=== PATIENT | female | born 1940 | race Caucasian/White ===

== ENCOUNTER 2022-01-18 13:20 | Inpatient (IN) ==
--- NOTE | 2022-01-18 14:29 | Emergency Department Note ---
Seizure HPI General Chief Complaint: Seizure Stated Complaint: Seizure Time Seen by Provider: 01/18/22 13:36 Source: EMS Mode of arrival: EMS Limitations: altered mental status History of Present Illness HPI Narrative: 81-year-old female with history of seizures and advanced Alzheimer's was seen in our ER on 01/14 for altered mental status and weakness. She had a head CT that was negative for acute findings. Patient reportedly fell and broke her right wrist about 4 days prior and was seen at [facility] and treated conservatively with immobilization in a cast. She was also found to have a possible developing pneumonia on chest x-ray and was started on doxycycline. She was discharged to her adult family home facility. Today her adult family home staff noted that she started convulsing at the breakfast table and called EMS. She is on lamotrigine for seizure suppression in liquid form, and the caregiver states that she has been "drooling" it out of her mouth and cannot be certain that she has been receiving her full dosage. Family is at the bedside and both family and the adult family home caregivers note that she has been minimally interactive with significant decline in functional capacity over the last 4 days. Prior to her fall she had been ambulating with assistance. Related Data Home Medications Medication Instructions Recorded Confirmed acetaminophen 325 mg capsule 650 mg PO Q4H PRN 01/10/22 01/10/22 amoxicillin 875 mg-potassium 1 tab PO BID 01/10/22 01/10/22 clavulanate 125 mg tablet atorvastatin 20 mg tablet 20 mg PO QDAY 01/10/22 01/10/22 bisacodyl 10 mg rectal suppository 10 mg NM QDAY PRN 01/10/22 01/10/22 calcium carbonate 500 mg calcium 500 mg PO BID 01/10/22 01/10/22 (1,250 mg) tablet docusate sodium 100 mg capsule 100 mg PO BID 01/10/22 01/10/22 guaifenesin 200 mg tablet 600 mg PO Q6H PRN tab 01/10/22 01/10/22 ibuprofen 200 mg tablet 400 mg PO Q8H 01/10/22 01/10/22 levetiracetam 100 mg/mL oral 500 mg PO BID ml 01/10/22 01/10/22 solution levothyroxine 25 mcg capsule 25 mcg PO QDAY 01/10/22 01/10/22 loperamide 2 mg capsule 2 mg PO Q6H PRN 01/10/22 01/10/22 multivitamin 1 tab PO QAM 01/10/22 01/10/22 polyethylene glycol 3350 4 gram 4 g PO QDAY 01/10/22 01/10/22 oral powder packet promethazine 25 mg tablet 25 mg PO Q6H PRN 01/10/22 01/10/22 sennosides 8.6 mg capsule (senna) 8.6 mg PO BID 01/10/22 01/10/22 Previous Rx's Medication Instructions Recorded doxycycline monohydrate 100 mg 100 mg PO BID 7 Days #14 cap 01/14/22 capsule doxycycline monohydrate 100 mg 100 mg PO BID 7 Days #14 tab 01/14/22 tablet Allergies Allergy/AdvReac Type Severity Reaction Status Date / Time No Known Drug Allergies Allergy Verified 01/18/22 13:21 Review of Systems ROS ROS Narrative: Narrative: All systems ED: reviewed and negative except as stated. [facility] Narrative Patient History Narrative: Narrative: Medical/Surgical/Family History All Active Problems (Updated 01/18/22 @ 21:17 by Cathryn Iraheta PA-C) Pneumonia (Acute) Need for comfort care (Acute) Social History Smoking Status: Never smoker Exam Narrative Narrative: General: NAD, nontoxic appearing. Arousable, but not following commands and minimally interactive. HEENT: PERRL, EOMI, normocephalic. Dry mucous membranes. Normal facies and normal dentition. Chest: Symmetric, no pain to palpation Respiratory: Lungs clear to auscultation bilaterally. No respiratory distress. Unlabored breathing. Heart: Regular rate and rhythm, no murmurs/clicks/rubs. Abdomen: Non-tender, Non distended, normal bowel tones. No organomegaly. Extremities: Warm and well perfused. No edema. DP 2+ bilaterally. No venous stasis. Neuro: No focal deficits. Cranial nerves II-XII grossly normal. Skin: Warm dry, no rashes or lesions, no cyanosis. Psych: Normal mood and affect Heme/Lymph: No abnormal bruising General Limitations: altered mental status Course Course Course Narrative: 81-year-old female presents for seizure activity and altered mental status Reevaluation(s) Reevaluation #1: Patient has had no seizure activity during her evaluation here. I discussed with the family at the bedside goals of care and the family has elected to make the patient comfort care. They are agreeable to hospice referral and consult. Given the above I have refrained from ordering any additional imaging or laboratory studies. I have reached out to the hospitalist for admission for comfort care. Vital Signs Vital signs: Vital Signs Temperature 97.2 F 01/18/22 13:21 Pulse Rate 123 H 01/18/22 13:21 Respiratory Rate 20 01/18/22 13:21 Blood Pressure 150/75 01/18/22 13:21 Pulse Oximetry (%) 95 01/18/22 13:21 Temperature 97.8 F 01/18/22 20:00 Pulse Rate 73 01/18/22 20:00 Respiratory Rate 16 01/18/22 20:00 Blood Pressure 152/79 01/18/22 20:00 Pulse Oximetry (%) 94 01/18/22 20:00 MDM MDM Narrative Medical decision making narrative: Altered mental status Seizures Comfort care I discussed comfort care at length with the family at the bedside and they all agree that admission for comfort and referral to hospice is in Gaye's best interest. The hospitalist accepted the patient for admission. ED POC Tests ED POC Tests: LEONARDO - SARS Antigen Negative Discharge Plan Patient/Caregiver Discharge Instructions Pt seen by INSULATION FOREMAN/PA only: Yes Clinical Impression: Need for comfort care Patient Disposition: Xfer As Inpt ([facility]) Discharge Date/Time: 01/18/22 18:15
[2022-01-18] MEDS ORDERED: PROCHLORPERAZINE 10 MG/2 ML VIAL IV PRN (17:50)
[2022-01-18] MEDS ORDERED: QUEtiapine 25 MG TABLET PO PRN (17:50)
[2022-01-18] MEDS ORDERED: ALBUTEROL SULFATE 2.5 MG/3 ML NEBULIZER NEB PRN (17:50)
[2022-01-18] MEDS ORDERED: DIVALPROEX 125 MG CAP.SPRINK PO PRN (17:50)
[2022-01-18] MEDS ORDERED: oxyCODONE/APAP 5/325MG TABLET PO PRN (17:50)
[2022-01-18] MEDS ORDERED: diphenhydrAMINE 50 MG/ML VIAL IV PRN (17:50)
[2022-01-18] MEDS ORDERED: LORazepam 2 MG/ML VIAL IV PRN (17:50)
[2022-01-18] MEDS ORDERED: ACETAMINOPHEN 325 MG TABLET PO PRN (17:50)
[2022-01-18] MEDS ORDERED: ONDANSETRON 4 MG/2 ML VIAL IV PRN (17:50)
[2022-01-18] MEDS: HYDROmorphone 1 MG/ML SYRINGE IV PRN (20:51)
[2022-01-18] MEDS: SENNOSIDES 1 TABLET PO SCH (20:52)
[2022-01-18] MEDS: DOCUSATE SODIUM 100 MG CAPSULE PO SCH (20:52)
[2022-01-18] MEDS: LORazepam 2 MG/ML ORAL.SOL PO PRN (20:52)
[2022-01-18] MEDS: 0.9 % SODIUM CHLORIDE 10 ML SYRINGE IV SCH (21:20)
[2022-01-19] MEDS: 0.9 % SODIUM CHLORIDE 10 ML SYRINGE IV SCH ×2 (09:17→13:29)
[2022-01-19] MEDS: DOCUSATE SODIUM 100 MG CAPSULE PO SCH ×2 (09:18→19:57)
--- NOTE | 2022-01-19 10:17 | Internal Med History&Physical ---
HPI History of Present Illness Patient information: Note initiated : 01/18/22 at 10:17 pm Service Date, if different from initiated Date: 01/19/22 Patient: Gaye Paredes a 81 y/o F admitted on 01/18/22 for Seizure. Chief Complaint: [] History of present illness: Ms. Paredes is a 81 year old F This is a 81-year-old female with a history of intracranial bleed on Keppra for seizure prevention, advanced dementia was brought to the ER with a suspected episode of seizure. Patient lives in an assisted living and noticed she was at the dinner table and started having jerking movements of her hand and one of the staff thought she had seizure and was brought to the ER. In the ER patient was evaluated and discussed with the family and family decided to change the goal of care to comfort measures because of the poor quality of life and advanced dementia. No clinical evidence of active seizure and patient will be admitted to our facility for further management and achieving the goal of care Review of system-unable to obtain due to advanced dementia physical exam-exam is limited due to comfort care and advanced dementia Head: No bruises, normal-appearing nontraumatic Eyes: normal appearance, no scleral icterus. Respiratory: no respiratory distress. Cardiovascular: normal rate and rhythm, S1, S2. GI/Abdominal: soft, nontender, no guarding. Neurological: No focal deficit identified Psychiatric: No active hallucinations or delusions Skin: No bruises identified PFSH PFSH All Active Problems (Updated 01/18/22 @ 21:17 by Cathryn Iraheta PA-C) Pneumonia (Acute) Need for comfort care (Acute) MEDS/ALLERGIES Home Medications and Allergies Home Medications Medication Instructions Recorded Confirmed Type acetaminophen 325 mg capsule 650 mg PO Q4H PRN 01/10/22 01/18/22 History atorvastatin 20 mg tablet 20 mg PO QDAY 01/10/22 01/18/22 History bisacodyl 10 mg rectal suppository 10 mg AK QDAY PRN 01/10/22 01/18/22 History calcium carbonate 500 mg calcium 500 mg PO BID 01/10/22 01/18/22 History (1,250 mg) tablet docusate sodium 100 mg capsule 100 mg PO BID 01/10/22 01/18/22 History guaifenesin 200 mg tablet 600 mg PO Q6H PRN tab 01/10/22 01/18/22 History ibuprofen 200 mg tablet 400 mg PO Q8H 01/10/22 01/18/22 History levetiracetam 100 mg/mL oral 500 mg PO BID ml 01/10/22 01/18/22 History solution levothyroxine 25 mcg capsule 25 mcg PO QDAY 01/10/22 01/18/22 History loperamide 2 mg capsule 2 mg PO Q6H PRN 01/10/22 01/18/22 History multivitamin 1 tab PO QAM 01/10/22 01/18/22 History polyethylene glycol 3350 4 gram 4 g PO QDAY 01/10/22 01/18/22 History oral powder packet promethazine 25 mg tablet 25 mg PO Q6H PRN 01/10/22 01/18/22 History sennosides 8.6 mg capsule (senna) 8.6 mg PO BID 01/10/22 01/18/22 History doxycycline monohydrate 100 mg 100 mg PO BID 7 Days #14 tab 01/14/22 01/18/22 Rx tablet Allergies Allergy/AdvReac Type Severity Reaction Status Date / Time No Known Drug Allergies Allergy Verified 01/18/22 13:21 EXAM Constitutional Vitals: Temp Pulse Resp BP Pulse Ox 97.5 F 71 21 133/64 90 01/19/22 06:39 01/19/22 06:39 01/19/22 06:39 01/19/22 06:39 01/19/22 06:39 A/P Narrative Plan of Treatment: Goal of care comfort measures History of seizure-we will use Keppra liquid form if she can take p.o. otherwise we will use Depakote sprinkles and IV lorazepam We will use p.o. Seroquel, IM Haldol for agitation as needed Case management consult for placement and hospice consult We will discontinue her chronic medications Time Spent With Patient Time: Total time spent is greater than 50% in coordination of care (as documented) at patient's floor/unit and/or counseling patient:
--- NOTE | 2022-01-19 10:19 | Internal Med Progress Note ---
SUBJECTIVE Subjective Patient information: Note initiated : 01/19/22 at 10:19 am Service Date, if different from initiated Date: [] Patient: Gaye Paredes a 81 y/o F admitted on 01/18/22 for Seizure. Chief Complaint: [] Interval history: This is a 81-year-old female with a history of intracranial bleed on Keppra for seizure prevention, advanced dementia was brought to the ER with a suspected episode of seizure. Patient lives in an assisted living and noticed she was at the dinner table and started having jerking movements of her hand and one of the staff thought she had seizure and was brought to the ER. In the ER patient was evaluated and discussed with the family and family decided to change the goal of care to comfort measures because of the poor quality of life and advanced dementia. No clinical evidence of active seizure and patient will be admitted to our facility for further management and achieving the goal of care 01/19 Patient continues to be comfortable No evidence of any seizure Patient remained drowsy No respiratory distress Review of system-unable to obtain due to advanced dementia physical exam-exam is limited due to comfort care and advanced dementia Head: No bruises, normal-appearing nontraumatic Eyes: normal appearance, no scleral icterus. Respiratory: no respiratory distress. Cardiovascular: normal rate and rhythm, S1, S2. GI/Abdominal: soft, nontender, no guarding. Neurological: No focal deficit identified Psychiatric: No active hallucinations or delusions Skin: No bruises identified Constitutional Vitals: Vital Signs Temp Pulse Resp BP Pulse Ox 97.5 F 71 21 133/64 90 01/19/22 06:39 01/19/22 06:39 01/19/22 06:39 01/19/22 06:39 01/19/22 06:39 Period Temp Pulse Resp BP Sys/Noriega Pulse Ox Last 24 Hr 97.2 F-97.8 F 58-123 13-21 113-169/56-101 90-100 Intake and Output 01/18/22 01/19/22 01/19/22 21:59 05:59 13:59 Output Total 1 Balance -1 Weight 44.361 kg Intake & Output: Intake & Output 01/18/22 01/19/22 01/19/22 21:59 05:59 13:59 Output Total 1 Balance -1 Weight 44.361 kg Output: # of times incontinent of urine 1 Other: # Voids 1 OBJ DATA Labs Meds: Medications Acetaminophen (Acetaminophen 325 Mg Tablet) 650 mg PO Q6HP PRN; Protocol PRN Reason: Per Pain Protocol/Fever > 101 Albuterol Sulfate (Albuterol Sulfate 2.5 Mg/3 Ml Nebulizer) 2.5 mg NEB Q2HP PRN PRN Reason: Shortness Of Breath Diphenhydramine HCl (Diphenhydramine 50 Mg/Ml Vial) 25 mg IV Q6HP PRN PRN Reason: Allergic Symptoms Divalproex Sodium (Divalproex 125 Mg Cap.Sprink) 250 mg PO BID PRN PRN Reason: seizure activity Docusate Sodium (Docusate Sodium 100 Mg Capsule) 100 mg PO BID [facility] Last Admin: 01/19/22 09:18 Dose: Not Given Documented by: Hydromorphone HCl (Hydromorphone 1 Mg/Ml Syringe) 1 mg IV Q2HP PRN; Protocol PRN Reason: Per Pain Protocol Last Admin: 01/18/22 20:51 Dose: 1 mg Documented by: Lorazepam (Lorazepam 2 Mg/Ml Oral.Amalia) 1 mg PO Q4HP PRN PRN Reason: ANXIETY/SEDATION Last Admin: 01/18/22 20:52 Dose: 1 mg Documented by: Lorazepam (Lorazepam 2 Mg/Ml Vial) 2 mg IV Q2-4HP PRN PRN Reason: Seizure Activity Melatonin (Melatonin 3 Mg Tablet) 3 mg PO HSP PRN PRN Reason: Insomnia Ondansetron HCl (Ondansetron 4 Mg/2 Ml Vial) 4 mg IV Q6HP PRN PRN Reason: Nausea And Vomiting Oxycodone/Acetaminophen (Oxycodone/Apap 5/325mg Tablet) 1 tab PO Q4HP PRN; Protocol PRN Reason: Per Pain Protocol Prochlorperazine (Prochlorperazine 10 Mg/2 Ml Vial) 5 mg IV Q4HP PRN PRN Reason: Nausea And Vomiting Quetiapine Fumarate (Quetiapine 25 Mg Tablet) 12.5 mg PO HS PRN PRN Reason: iNSOMNIA-2nd option Senna (Sennosides 1 Tablet) 2 tab PO HS [facility] Last Admin: 01/18/22 20:52 Dose: Not Given Documented by: Sodium Chloride (0.9 % Sodium Chloride 10 Ml Syringe) 10 ml IV Q8 [facility] Last Admin: 01/19/22 09:17 Dose: 10 ml Documented by: A/P Narrative Plan of Treatment: Goal of care comfort measures History of seizure-we will use Keppra liquid form if she can take p.o. otherwise we will use Depakote sprinkles and IV lorazepam We will use p.o. Seroquel, IM Haldol for agitation as needed Case management consult for placement and hospice consult We will discontinue her chronic medications Time Spent With Patient Time: Total time spent is greater than 50% in coordination of care (as documented) at patient's floor/unit and/or counseling patient:
[2022-01-19] MEDS: LORazepam 2 MG/ML ORAL.SOL PO PRN (19:03)
[2022-01-19] MEDS: HYDROmorphone 1 MG/ML SYRINGE IV PRN (19:45)
[2022-01-19] MEDS: SENNOSIDES 1 TABLET PO SCH (19:57)
[2022-01-20] MEDS: 0.9 % SODIUM CHLORIDE 10 ML SYRINGE IV SCH ×4 (00:03→20:21)
[2022-01-20] MEDS: DOCUSATE SODIUM 100 MG CAPSULE PO SCH ×2 (08:16→20:21)
--- NOTE | 2022-01-20 11:58 | Internal Med Progress Note ---
SUBJECTIVE Subjective Patient information: Note initiated : 01/20/22 at 11:57 am Service Date, if different from initiated Date: [] Patient: Gaye Paredes 81 y/o F admitted on 01/18/22 for Seizure. Chief Complaint: [] Interval history: 81-year-old female with a history of intracranial bleed on Keppra for seizure prevention, advanced dementia was brought to the ER with a suspected episode of seizure. Patient lives in an assisted living and noticed she was at the dinner table and started having jerking movements of her hand and one of the staff thought she had seizure and was brought to the ER. In the ER patient was evaluated and discussed with the family and family decided to change the goal of care to comfort measures because of the poor quality of life and advanced dementia. No clinical evidence of active seizure and patient will be admitted to our facility for further management and achieving the goal of care 01/19 Patient continues to be comfortable No evidence of any seizure Patient remained drowsy No respiratory distress 01/20 Patient continues to be comfortable Patient needing placement hospice consulted Review of system-unable to obtain due to advanced dementia physical exam-exam is limited due to comfort care and advanced dementia Respiratory: no respiratory distress. Cardiovascular: Regular GI/Abdominal: No distention no tenderness Neurological: Moving extremities no focal deficit identified Psychiatric: No active hallucinations or delusions Constitutional Vitals: Vital Signs Temp Pulse Resp BP Pulse Ox 97.5 F 71 21 133/64 90 01/19/22 06:39 01/19/22 06:39 01/19/22 06:39 01/19/22 06:39 01/19/22 06:39 Intake and Output 01/19/22 01/20/22 01/20/22 21:59 05:59 13:59 Intake Total 150 Output Total 1 Balance 149 Weight 44.724 kg Intake & Output: Intake & Output 01/19/22 01/20/22 01/20/22 21:59 05:59 13:59 Intake Total 150 Output Total 1 Balance 149 Weight 44.724 kg Intake: Oral 150 Output: # of times incontinent of urine 1 Other: Stool Size Small Stool Color Brown Stool Consistency Soft # of times incontinent of 1 Bowels OBJ DATA Labs Meds: Medications Acetaminophen (Acetaminophen 325 Mg Tablet) 650 mg PO Q6HP PRN; Protocol PRN Reason: Per Pain Protocol/Fever > 101 Albuterol Sulfate (Albuterol Sulfate 2.5 Mg/3 Ml Nebulizer) 2.5 mg NEB Q2HP PRN PRN Reason: Shortness Of Breath Diphenhydramine HCl (Diphenhydramine 50 Mg/Ml Vial) 25 mg IV Q6HP PRN PRN Reason: Allergic Symptoms Divalproex Sodium (Divalproex 125 Mg Cap.Sprink) 250 mg PO BID PRN PRN Reason: seizure activity Docusate Sodium (Docusate Sodium 100 Mg Capsule) 100 mg PO BID [facility] Last Admin: 01/20/22 08:16 Dose: Not Given Documented by: Hydromorphone HCl (Hydromorphone 1 Mg/Ml Syringe) 1 mg IV Q2HP PRN; Protocol PRN Reason: Per Pain Protocol Last Admin: 01/19/22 19:45 Dose: 1 mg Documented by: Lorazepam (Lorazepam 2 Mg/Ml Oral.Amalia) 1 mg PO Q4HP PRN PRN Reason: ANXIETY/SEDATION Last Admin: 01/19/22 19:03 Dose: 1 mg Documented by: Lorazepam (Lorazepam 2 Mg/Ml Vial) 2 mg IV Q2-4HP PRN PRN Reason: Seizure Activity Melatonin (Melatonin 3 Mg Tablet) 3 mg PO HSP PRN PRN Reason: Insomnia Ondansetron HCl (Ondansetron 4 Mg/2 Ml Vial) 4 mg IV Q6HP PRN PRN Reason: Nausea And Vomiting Oxycodone/Acetaminophen (Oxycodone/Apap 5/325mg Tablet) 1 tab PO Q4HP PRN; Prot ocol PRN Reason: Per Pain Protocol Prochlorperazine (Prochlorperazine 10 Mg/2 Ml Vial) 5 mg IV Q4HP PRN PRN Reason: Nausea And Vomiting Quetiapine Fumarate (Quetiapine 25 Mg Tablet) 12.5 mg PO HS PRN PRN Reason: iNSOMNIA-2nd option Senna (Sennosides 1 Tablet) 2 tab PO HS [facility] Last Admin: 01/19/22 19:57 Dose: Not Given Documented by: Sodium Chloride (0.9 % Sodium Chloride 10 Ml Syringe) 10 ml IV Q8 [facility] Last Admin: 01/20/22 05:43 Dose: Not Given Documented by: A/P Narrative Plan of Treatment: Goal of care comfort measures History of seizure-we will use Keppra liquid form if she can take p.o. otherwise we will use Depakote sprinkles and IV lorazepam We will use p.o. Seroquel, IM Haldol for agitation as needed Case management consult for placement and hospice consult We will discontinue her chronic medications Time Spent With Patient Time: Total time spent is greater than 50% in coordination of care (as documented) at patient's floor/unit and/or counseling patient:
[2022-01-20] MEDS: MELATONIN 3 MG TABLET PO PRN (20:20)
[2022-01-20] MEDS: HYDROmorphone 1 MG/ML SYRINGE IV PRN (20:20)
[2022-01-20] MEDS: SENNOSIDES 1 TABLET PO SCH (20:21)
[2022-01-20] MEDS: LORazepam 2 MG/ML ORAL.SOL PO PRN (20:21)
[2022-01-21] MEDS: 0.9 % SODIUM CHLORIDE 10 ML SYRINGE IV SCH ×3 (05:30→20:30)
[2022-01-21] MEDS: DOCUSATE SODIUM 100 MG CAPSULE PO SCH ×2 (11:15→21:15)
--- NOTE | 2022-01-21 15:13 | Internal Med Progress Note ---
SUBJECTIVE Subjective Patient information: Note initiated : 01/21/22 at 3:11 pm Service Date, if different from initiated Date: [] Patient: Gaye Paredes a 81 y/o F admitted on 01/18/22 for Seizure. Chief Complaint: [] Interval history: 81-year-old female with a history of intracranial bleed on Keppra for seizure prevention, advanced dementia was brought to the ER with a suspected episode of seizure. Patient lives in an assisted living and noticed she was at the dinner table and started having jerking movements of her hand and one of the staff thought she had seizure and was brought to the ER. In the ER patient was evaluated and discussed with the family and family decided to change the goal of care to comfort measures because of the poor quality of life and advanced dementia. No clinical evidence of active seizure and patient will be admitted to our facility for further management and achieving the goal of care 01/19 Patient continues to be comfortable No evidence of any seizure Patient remained drowsy No respiratory distress 01/20 Patient continues to be comfortable Patient needing placement hospice consulted 01/22 Constitutional Vitals: Vital Signs Temp Pulse Resp BP Pulse Ox 97.8 F 70 20 136/69 94 01/21/22 08:00 01/21/22 08:00 01/21/22 08:00 01/21/22 08:00 01/21/22 08:00 Period Temp Pulse Resp BP Sys/Noriega Pulse Ox Last 24 Hr 97.8 F-98.4 F 70-90 -22 136-189/69-101 93-94 Intake and Output 01/21/22 01/21/22 01/21/22 05:59 13:59 21:59 Intake Total 0 Output Total 1 Balance -1 Intake & Output: Intake & Output 01/21/22 01/21/22 01/21/22 05:59 13:59 21:59 Intake Total 0 Output Total 1 Balance -1 Intake: Oral 0 Output: Void Amount 0 # of times incontinent of urine 1 Other: # Voids 0 # Bowel Movements 0 # of times incontinent of 0 Bowels Exam: General: Alert, Awake, No acute Distress Eyes/N/T: EOMI, Head/Neck: neck supple, CV: RRR, No murmurs, Pulm: Clear b/l, no wheezing/rhonchi/rales Abd: soft, nontender, +BS x4 Ext: no clubbing/cyanosis/edema Neuro: Alert, no focal deficits, moves all extremities, Skin: warm/dry OBJ DATA Labs Meds: Medications Acetaminophen (Acetaminophen 325 Mg Tablet) 650 mg PO Q6HP PRN; Protocol PRN Reason: Per Pain Protocol/Fever > 101 Albuterol Sulfate (Albuterol Sulfate 2.5 Mg/3 Ml Nebulizer) 2.5 mg NEB Q2HP PRN PRN Reason: Shortness Of Breath Diphenhydramine HCl (Diphenhydramine 50 Mg/Ml Vial) 25 mg IV Q6HP PRN PRN Reason: Allergic Symptoms Divalproex Sodium (Divalproex 125 Mg Cap.Sprink) 250 mg PO BID PRN PRN Reason: seizure activity Docusate Sodium (Docusate Sodium 100 Mg Capsule) 100 mg PO BID [facility] Last Admin: 01/21/22 11:15 Dose: Not Given Documented by: Hydromorphone HCl (Hydromorphone 1 Mg/Ml Syringe) 1 mg IV Q2HP PRN; Protocol PRN Reason: Per Pain Protocol Last Admin: 01/20/22 20:20 Dose: 1 mg Documented by: Lorazepam (Lorazepam 2 Mg/Ml Oral.Amalia) 1 mg PO Q4HP PRN PRN Reason: ANXIETY/SEDATION Last Admin: 01/20/22 20:21 Dose: 1 mg Documented by: Lorazepam (Lorazepam 2 Mg/Ml Vial) 2 mg IV Q2-4HP PRN PRN Reason: Seizure Activity Melatonin (Melatonin 3 Mg Tablet) 3 mg PO HSP PRN PRN Reason: Insomnia Last Admin: 01/20/22 20:20 Dose: 3 mg Documented by: Ondansetron HCl (Ondansetron 4 Mg/2 Ml Vial) 4 mg IV Q6HP PRN PRN Reason: Nausea And Vomiting Oxycodone/Acetaminophen (Oxycodone/Apap 5/325mg Tablet) 1 tab PO Q4HP PRN; Protocol PRN Reason: Per Pain Protocol Prochlorperazine (Prochlorperazine 10 Mg/2 Ml Vial) 5 mg IV Q4HP PRN PRN Reason: Nausea And Vomiting Quetiapine Fumarate (Quetiapine 25 Mg Tablet) 12.5 mg PO HS PRN PRN Reason: iNSOMNIA-2nd option Senna (Sennosides 1 Tablet) 2 tab PO HS [facility] Last Admin: 01/20/22 20:21 Dose: Not Given Documented by: Sodium Chloride (0.9 % Sodium Chloride 10 Ml Syringe) 10 ml IV Q8 [facility] Last Admin: 01/21/22 14:33 Dose: 10 ml Documented by: A/P Narrative A/P Narrative: Goal of care comfort measures *History of seizure -we will use Keppra liquid form if she can take p.o. otherwise we will use Depakote sprinkles and IV lorazepam -We will use p.o. Seroquel, IM Haldol for agitation as needed -Case management consult for placement and hospice consult -We will discontinue her chronic medications *Advanced dementia: *Hypothyroidism: *Hyperlipidemia: Time Spent With Patient Time: Total time spent is greater than 50% in coordination of care (as documented) at patient's floor/unit and/or counseling patient:
[2022-01-21] MEDS: HYDROmorphone 1 MG/ML SYRINGE IV PRN (19:55)
[2022-01-21] MEDS: MELATONIN 3 MG TABLET PO PRN (19:55)
[2022-01-21] MEDS: SENNOSIDES 1 TABLET PO SCH (21:15)
--- NOTE | 2022-01-21 22:18 | Internal Med Progress Note ---
SUBJECTIVE Subjective Patient information: Note initiated : 01/21/22 at 10:17 pm Service Date, if different from initiated Date: [] Patient: Gaye Paredes a 81 y/o F admitted on 01/18/22 for Seizure. Chief Complaint: [] Interval history: 81-year-old female with a history of intracranial bleed on Keppra for seizure prevention, advanced dementia was brought to the ER with a suspected episode of seizure. Patient lives in an assisted living and noticed she was at the dinner table and started having jerking movements of her hand and one of the staff thought she had seizure and was brought to the ER. In the ER patient was evaluated and discussed with the family and family decided to change the goal of care to comfort measures because of the poor quality of life and advanced dementia. No clinical evidence of active seizure and patient will be admitted to our facility for further management and achieving the goal of care 01/19 Patient continues to be comfortable No evidence of any seizure Patient remained drowsy No respiratory distress 01/20 Patient continues to be comfortable Patient needing placement hospice consulted 01/21 waiting placement - answered family's questions updated CM Review of system-unable to obtain due to advanced dementia physical exam-exam is limited due to comfort care and advanced dementia Respiratory: no respiratory distress. Cardiovascular: Regular GI/Abdominal: No distention no tenderness Neurological: Moving extremities no focal deficit identified Psychiatric: No active hallucinations or delusions Constitutional Vitals: Vital Signs Temp Pulse Resp BP Pulse Ox 99.5 F H 93 H 16 150/85 93 01/21/22 19:51 01/21/22 19:51 01/21/22 19:51 01/21/22 19:51 01/21/22 19:51 Period Temp Pulse Resp BP Sys/Noriega Pulse Ox Last 24 Hr 97.8 F-99.5 F 70-93 16-20 136-150/69-85 93-94 Intake and Output 01/21/22 01/21/22 01/22/22 13:59 21:59 05:59 Intake Total 220 Output Total 2 Balance 218 Weight 44.679 kg Patient Weight 01/22/22 05:59 Weight 44.679 kg Intake & Output: Intake & Output 01/21/22 01/21/22 01/22/22 13:59 21:59 05:59 Intake Total 220 Output Total 2 Balance 218 Weight 44.679 kg Intake: Oral 220 Output: # of times incontinent of urine 2 Other: Percent of Meal Consumed PUDDING OBJ DATA Labs Meds: Medications Acetaminophen (Acetaminophen 325 Mg Tablet) 650 mg PO Q6HP PRN; Protocol PRN Reason: Per Pain Protocol/Fever > 101 Albuterol Sulfate (Albuterol Sulfate 2.5 Mg/3 Ml Nebulizer) 2.5 mg NEB Q2HP PRN PRN Reason: Shortness Of Breath Diphenhydramine HCl (Diphenhydramine 50 Mg/Ml Vial) 25 mg IV Q6HP PRN PRN Reason: Allergic Symptoms Divalproex Sodium (Divalproex 125 Mg Cap.Sprink) 250 mg PO BID PRN PRN Reason: seizure activity Docusate Sodium (Docusate Sodium 100 Mg Capsule) 100 mg PO BID [facility] Last Admin: 01/21/22 21:15 Dose: Not Given Documented by: Hydromorphone HCl (Hydromorphone 1 Mg/Ml Syringe) 1 mg IV Q2HP PRN; Protocol PRN Reason: Per Pain Protocol Last Admin: 01/21/22 19:55 Dose: 1 mg Documented by: Lorazepam (Lorazepam 2 Mg/Ml Oral.Amalia) 1 mg PO Q4HP PRN PRN Reason: ANXIETY/SEDATION Last Admin: 01/20/22 20:21 Dose: 1 mg Documented by: Lorazepam (Lorazepam 2 Mg/Ml Vial) 2 mg IV Q2-4HP PRN PRN Reason: Seizure Activity Melatonin (Melatonin 3 Mg Tablet) 3 mg PO HSP PRN PRN Reason: Insomnia Last Admin: 01/21/22 19:55 Dose: 3 mg Documented by: Ondansetron HCl (Ondansetron 4 Mg/2 Ml Vial) 4 mg IV Q6HP PRN PRN Reason: Nausea And Vomiting Oxycodone/Acetaminophen (Oxycodone/Apap 5/325mg Tablet) 1 tab PO Q4HP PRN; Protocol PRN Reason: Per Pain Protocol Prochlorperazine (Prochlorperazine 10 Mg/2 Ml Vial) 5 mg IV Q4HP PRN PRN Reason: Nausea And Vomiting Quetiapine Fumarate (Quetiapine 25 Mg Tablet) 12.5 mg PO HS PRN PRN Reason: iNSOMNIA-2nd option Senna (Sennosides 1 Tablet) 2 tab PO HS [facility] Last Admin: 01/21/22 21:15 Dose: Not Given Documented by: Sodium Chloride (0.9 % Sodium Chloride 10 Ml Syringe) 10 ml IV Q8 [facility] Last Admin: 01/21/22 14:33 Dose: 10 ml Documented by: A/P Time Spent With Patient Time: Total time spent is greater than 50% in coordination of care (as documented) at patient's floor/unit and/or counseling patient:
[2022-01-22] MEDS: 0.9 % SODIUM CHLORIDE 10 ML SYRINGE IV SCH (05:02)
--- NOTE | 2022-01-22 08:36 | Internal Med Progress Note ---
SUBJECTIVE Subjective Patient information: Note initiated : 01/22/22 at 8:36 am Service Date, if different from initiated Date: [] Patient: Gaye Paredes a 81 y/o F admitted on 01/18/22 for Seizure. Chief Complaint: [] Interval history: 81-year-old female with a history of intracranial bleed on Keppra for seizure prevention, advanced dementia was brought to the ER with a suspected episode of seizure. Patient lives in an assisted living and noticed she was at the dinner table and started having jerking movements of her hand and one of the staff thought she had seizure and was brought to the ER. In the ER patient was evaluated and discussed with the family and family decided to change the goal of care to comfort measures because of the poor quality of life and advanced dementia. No clinical evidence of active seizure and patient will be admitted to our facility for further management and achieving the goal of care 01/19 Patient continues to be comfortable No evidence of any seizure Patient remained drowsy No respiratory distress 01/20 Patient continues to be comfortable Patient needing placement hospice consulted 01/22 Daughter at bedside. Patient nonverbal. Appears to be comfortable. Review of systems unable to obtain as patient is nonverbal Constitutional Vitals: Vital Signs Temp Pulse Resp BP Pulse Ox 99.5 F H 93 H 16 150/85 93 01/21/22 19:51 01/21/22 19:51 01/21/22 19:51 01/21/22 19:51 01/21/22 19:51 Period Temp Pulse Resp BP Sys/Noriega Pulse Ox Last 24 Hr 99.5 F 93 16 150/85 93 Intake and Output 01/21/22 01/22/22 01/22/22 21:59 05:59 13:59 Intake Total 220 0 Output Total 2 1 Balance 218 -1 Weight 44.679 kg Intake & Output: Intake & Output 01/21/22 01/22/22 01/22/22 21:59 05:59 13:59 Intake Total 220 0 Output Total 2 1 Balance 218 -1 Weight 44.679 kg Intake: Oral 220 0 Output: Void Amount 0 # of times incontinent of urine 2 1 Other: Percent of Meal Consumed PUDDING Urine Color Dark Yellow Urine Odor Strong # Voids 0 # Bowel Movements 0 # of times incontinent of 0 Bowels Exam: General: Awake, No acute Distress Eyes/N/T: EOMI, Head/Neck: neck supple, CV: RRR, No murmurs, Pulm: Clear b/l, no wheezing/rhonchi/rales Abd: soft, nontender, +BS x4 Ext: no clubbing/cyanosis/edema Neuro: Alert, no focal deficits, moves all extremities, Skin: warm/dry OBJ DATA Labs Meds: Medications Acetaminophen (Acetaminophen 325 Mg Tablet) 650 mg PO Q6HP PRN; Protocol PRN Reason: Per Pain Protocol/Fever > 101 Albuterol Sulfate (Albuterol Sulfate 2.5 Mg/3 Ml Nebulizer) 2.5 mg NEB Q2HP PRN PRN Reason: Shortness Of Breath Diphenhydramine HCl (Diphenhydramine 50 Mg/Ml Vial) 25 mg IV Q6HP PRN PRN Reason: Allergic Symptoms Divalproex Sodium (Divalproex 125 Mg Cap.Sprink) 250 mg PO BID PRN PRN Reason: seizure activity Docusate Sodium (Docusate Sodium 100 Mg Capsule) 100 mg PO BID [facility] Last Admin: 01/21/22 21:15 Dose: Not Given Documented by: Hydromorphone HCl (Hydromorphone 1 Mg/Ml Syringe) 1 mg IV Q2HP PRN; Protocol PRN Reason: Per Pain Protocol Last Admin: 01/21/22 19:55 Dose: 1 mg Documented by: Lorazepam (Lorazepam 2 Mg/Ml Oral.Amalia) 1 mg PO Q4HP PRN PRN Reason: ANXIETY/SEDATION Last Admin: 01/20/22 20:21 Dose: 1 mg Documented by: Lorazepam (Lorazepam 2 Mg/Ml Vial) 2 mg IV Q2-4HP PRN PRN Reason: Seizure Activity Melatonin (Melatonin 3 Mg Tablet) 3 mg PO HSP PRN PRN Reason: Insomnia Last Admin: 01/21/22 19:55 Dose: 3 mg Documented by: Ondansetron HCl (Ondansetron 4 Mg/2 Ml Vial) 4 mg IV Q6HP PRN PRN Reason: Nausea And Vomiting Oxycodone/Acetaminophen (Oxycodone/Apap 5/325mg Tablet) 1 tab PO Q4HP PRN; Protocol PRN Reason: Per Pain Protocol Prochlorperazine (Prochlorperazine 10 Mg/2 Ml Vial) 5 mg IV Q4HP PRN PRN Reason: Nausea And Vomiting Quetiapine Fumarate (Quetiapine 25 Mg Tablet) 12.5 mg PO HS PRN PRN Reason: iNSOMNIA-2nd option Senna (Sennosides 1 Tablet) 2 tab PO HS [facility] Last Admin: 01/21/22 21:15 Dose: Not Given Documented by: Sodium Chloride (0.9 % Sodium Chloride 10 Ml Syringe) 10 ml IV Q8 [facility] Last Admin: 01/22/22 05:02 Dose: Not Given Documented by: A/P Narrative A/P Narrative: Goal of care comfort measures *History of seizure -we will use Keppra liquid form if she can take p.o. otherwise we will use Depakote sprinkles and IV lorazepam -We will use p.o. Seroquel, IM Haldol for agitation as needed -Case management consult for placement and hospice consult -We will discontinue her chronic medications *Advanced dementia: *Hypothyroidism: *Hyperlipidemia: Time Spent With Patient Time: Total time spent is greater than 50% in coordination of care (as documented) at patient's floor/unit and/or counseling patient:
[2022-01-22] MEDS: DOCUSATE SODIUM 100 MG CAPSULE PO SCH (09:00)
--- NOTE | 2022-01-22 10:28 | Discharge Summary ---
Discharge Provider Provider IMPORTANT FOLLOW-UP INFORMATION FOR PCP: Patient information: Note initiated : 01/22/22 at 10:27 am Service Date, if different from initiated Date: [] Patient: Gaye Paredes 81 y/o F admitted on 01/18/22 for Seizure. Chief Complaint: [] Date of admission: 01/18/22 18:15 Discharge date: 01/22/22 Primary care physician: Shellie Bernabe NP Consults: 01/18/22 Consult to Physician [CONS] Stat Comment: Consulting Provider: Antwon Booker Reason For Exam: Physician to Consult 01/22/22 10:04 Consult to Physician [CONS] Routine Comment: snf Consulting Provider: [facility] Reason For Exam: Physician to Consult COURSE Hospital Course Hospital course: Interval history: 81-year-old female with a history of intracranial bleed on Keppra for seizure prevention, advanced dementia was brought to the ER with a suspected episode of seizure. Patient lives in an assisted living and noticed she was at the dinner table and started having jerking movements of her hand and one of the staff thought she had seizure and was brought to the ER. In the ER patient was evaluated and discussed with the family and family decided to change the goal of care to comfort measures because of the poor quality of life and advanced dementia. No clinical evidence of active seizure and patient will be admitted to our facility for further management and achieving the goal of care 01/19 Patient continues to be comfortable No evidence of any seizure Patient remained drowsy No respiratory distress 01/20 Patient continues to be comfortable Patient needing placement hospice consulted 01/22 Daughter at bedside. Patient nonverbal. Appears to be comfortable. A/P Narrative A/P Narrative: Goal of care comfort measures *History of seizure -we will use Keppra liquid form if she can take p.o. otherwise we will use Depakote sprinkles and IV lorazepam -We will use p.o. Seroquel, IM Haldol for agitation as needed -Case management consult for placement and hospice consult -We will discontinue her chronic medications *Advanced dementia: *Hypothyroidism: *Hyperlipidemia: Discharge diagnosis: Seizures advanced dementia Secondary discharge diagnosis: Hypothyroidism hyperlipidemia Time Spent with Patient Time attestation: Total time spent providing and/or coordinating discharge services: Time spent: Greater than 30 minutes EXAM Constitutional Vitals: Temp Pulse Resp BP Pulse Ox 97.9 F 71 22 132/72 96 01/22/22 08:00 01/22/22 08:00 01/22/22 08:00 01/22/22 08:00 01/22/22 08:00 Discharge Plan Patient/Caregiver Discharge Instructions Activity: increase activity as tolerated Diet: Regular Diet Prescriptions: New hyoscyamine sulfate [Levsin/SL] 0.125 mg tablet, sublingual 0.125 mg sublingual QID PRN (Reason: terminal secretions) Qty: 20 0RF morphine 20 mg/5 mL (4 mg/mL) solution 10 mg PO Q1-2HP PRN (Reason: pain) Qty: 100 0RF ondansetron 4 mg tablet,disintegrating 4 mg translingual Q6H PRN (Reason: nausea and vomiting) Qty: 30 0RF lorazepam 2 mg/mL concentrate 1 mg sublingual Q2HP PRN (Reason: anxiety) Qty: 30 0RF Continued bisacodyl 10 mg suppository 10 mg NH QDAY PRN (Reason: Constipation) 0RF docusate sodium 100 mg capsule 100 mg PO BID 0RF levetiracetam 100 mg/mL solution 500 mg PO BID 0RF polyethylene glycol 3350 4 gram powder in packet 4 g PO QDAY 0RF promethazine 25 mg tablet 25 mg PO Q6H PRN (Reason: Nausea And Vomiting) 0RF senna 8.6 mg capsule 8.6 mg PO BID 0RF Discontinued acetaminophen 325 mg capsule 650 mg PO Q4H PRN (Reason: Pain) 0RF atorvastatin 20 mg tablet 20 mg PO QDAY 0RF calcium carbonate 500 mg calcium (1,250 mg) tablet 500 mg PO BID 0RF guaifenesin 200 mg tablet 600 mg PO Q6H PRN (Reason: Cough) 0RF ibuprofen 200 mg tablet 400 mg PO Q8H 0RF levothyroxine 25 mcg capsule 25 mcg PO QDAY 0RF loperamide 2 mg capsule 2 mg PO Q6H PRN (Reason: Diarrhea) 0RF multivitamin Tablet 1 tab PO QAM 0RF doxycycline monohydrate 100 mg tablet 100 mg PO BID 7 Days Qty: 14 0RF Follow Up Plan Follow up with: Shellie Bernabe NP-C [Primary Care Provider] - Patient Disposition: Xfer SNF Prognosis: Undetermined Rehab Potential: Undetermined I certify that the patient requires SNF services: Yes Overall status at discharge: patient is progressing back to baseline Discharge Orders: Discharge Order (Routine); Ordered 01/22/22 Ordered By: Tha Juárez
== END 2022-01-22 12:55 ==
LOC: ED 13:20 → MEDSUR 18:15
PROVIDERS: ADMIT Internal Medicine; ATTEND Internal Medicine